=== PATIENT | male | born 1965 | race Caucasian/White ===

== ENCOUNTER 2021-04-25 20:46 | Outpatient (CLI) | payer MEDICAID | END 2021-04-25 20:47 | disposition critical access hospital (66) | LOC: EMS 20:46 | DX: R56.9 Unspecified convulsions (principal) | CPT/HCPCS: A0425; A0429; A0999 ==

== ENCOUNTER 2021-04-25 21:13 | Emergency (ER) | payer MEDICAID, OTHER ==
--- NOTE | 2021-04-25 21:12 | ED Physician Documentation ---
PD HPI SEIZURE - Stated complaint Stated Complaint: SZ - History obtained from History obtained from: Patient, EMS - History of Present Illness Timing - onset: How many minutes ago (approximately 30-40 minutes [employer]) Witnessed: Witnessed Number of seizures: Single, Lasted minutes Description of seizure activity: Generalized, Tonic clonic Injury during seizure: Other (left ear) Associated symptoms: None History of seizures: Prior EtOH wdrawal sz Contributing factors: EtOH withdrawal - Additional information Additional information: BIBA. Patient was at work when, approximately 30-45 minutes [employer], he had GTC seizure lasting approximately 1 minute. He fell from standing position (fell due to seizure). Post-ictal AMS/confusion lasted 10-15 minutes and he is at baseline mental status on ED arrival. He says he has had seizures before, states they told me combination of dehydration and alcohol withdrawal. He admits to recent regular and heavy drinking of alcohol, last drink was yesterday Review of Systems Constitutional: reports: Reviewed and negative Eyes: reports: Reviewed and negative Ears: reports: Ear pain (mild left ear pain (auricle, due to injury when he fell)) Cardiac: reports: Reviewed and negative Respiratory: reports: Reviewed and negative GI: reports: Reviewed and negative Musculoskeletal: reports: Reviewed and negative Neurologic: reports: Seizure, Altered mental status (resolved [employer]), Head injury. denies: Generalized weakness, Focal weakness, Numbness, Headache PD PAST MEDICAL HISTORY - Past Medical History Past Medical History: Yes Other Past Medical History: alcohol withdrawal seizure - Past Surgical History Past Surgical History: No - Present Medications Home Medications: Ambulatory Orders Medication Instructions Recorded Confirmed Hydroxyzine HCl 11/28/14 11/28/14 [place] [[place] Carbonate] 11/28/14 11/28/14 chlordiazePOXIDE [Librium] 25 mg PO Q6H #15 cap 04/26/21 - Allergies Allergies/Adverse Reactions: Allergies Allergy/AdvReac Type Severity Reaction Status Date / Time No Known Drug Allergies Allergy Verified 04/25/21 21:20 PD ED PE NORMAL - Vitals Vital signs reviewed: Yes - General General: Alert and oriented X 3, No acute distress, Well developed/nourished - HEENT HEENT: Moist mucous membranes - Neck Neck: Supple, no meningeal sign, No bony TTP - Cardiac Cardiac: No murmur - Respiratory Respiratory: No respiratory distress, Clear bilaterally PD ED PE EXPANDED - HEENT HEENT Visual: 1 - bruising, swelling - Cardiac Cardiac: Tachy, Regular Rhythm Results - Vitals Vitals: Oxygen O2 Source Room air - EKG (time done) No standard instances Rate: Rate (enter#) (119) Rhythm: Sinus tachycardia [place]: Normal Intervals: Normal [place], Prolonged QT (borderline) QRS: Normal Ischemia: Normal ST segments - Labs Labs: Laboratory Tests 04/25/21 04/25/21 04/25/21 21:40 21:40 21:45 WBC 7.4 RBC 4.53 L Hgb 14.9 Hct 42.8 MCV 94.5 H MCH 32.9 H MCHC 34.8 RDW 11.4 L Plt Count 165 MPV 10.0 Neut # (Auto) 6.0 Lymph # (Auto) 0.7 L [place] # (Auto) 0.5 Eos # (Auto) 0.0 Baso # (Auto) 0.1 Absolute Nucleated RBC 0.00 Nucleated RBC % 0.0 Sodium 130 L Potassium 4.0 Chloride 92 L Carbon Dioxide 19 L Anion Gap 19.0 H BUN 7 Creatinine 0.8 Estimated GFR (MDRD) 101 Glucose 371 H Calcium 9.3 Total Bilirubin 1.6 H AST 72 H ALT 60 Alkaline Phosphatase 71 Total Protein 8.8 H Albumin 3.9 Globulin 4.9 H Albumin/Globulin Ratio 0.8 L Lipase 37 Urine Opiates Screen Ur Oxycodone Screen Urine Methadone Screen Ur Propoxyphene Screen Ur Barbiturates Screen Ur Tricyclics Screen Ur Phencyclidine Scrn Ur Amphetamine Screen U Methamphetamines Scrn U Benzodiazepines Scrn Urine Cocaine Screen U Cannabinoids Screen Ethyl Alcohol < 5.0 Serum Ketones NEGATIVE 04/25/21 23:00 WBC RBC Hgb Hct MCV MCH MCHC RDW Plt Count MPV Neut # (Auto) Lymph # (Auto) [place] # (Auto) Eos # (Auto) Baso # (Auto) Absolute Nucleated RBC Nucleated RBC % Sodium Potassium Chloride Carbon Dioxide Anion Gap BUN Creatinine Estimated GFR (MDRD) Glucose Calcium Total Bilirubin AST ALT Alkaline Phosphatase Total Protein Albumin Globulin Albumin/Globulin Ratio Lipase Urine Opiates Screen NEGATIVE Ur Oxycodone Screen NEGATIVE Urine Methadone Screen NEGATIVE Ur Propoxyphene Screen NEGATIVE Ur Barbiturates Screen NEGATIVE Ur Tricyclics Screen NEGATIVE Ur Phencyclidine Scrn NEGATIVE Ur Amphetamine Screen NEGATIVE U Methamphetamines Scrn NEGATIVE U Benzodiazepines Scrn NEGATIVE Urine Cocaine Screen NEGATIVE U Cannabinoids Screen NEGATIVE Ethyl Alcohol Serum Ketones - Rads (name of study) CT head Radiology: Prelim report reviewed, See rad report PD MEDICAL DECISION MAKING - ED course Complexity details: reviewed results, re-evaluated patient, considered differential, d/w patient ED course: presents after GTC seizure, had been drinking alcohol on daily basis until last drink yesterday. He is in NAD during ED stay. He says he has had prior seizures which were attributed to dehydration combined with alcohol withdrawal. He says he has been prescribed librium in the past for this. He has never been prescribed anti-seizure medications otherwise. Tachycardia gradually resolved after IV fluids and IV lorazepam. Advised to follow up in outpatient setting for reevaluation, particularly for his high blood sugar which he says is a new finding for him. Departure - Departure Disposition: 01 Home, Self Care Clinical Impression: Seizure, Hyperglycemia Condition: Good Instructions: ED Seizure Alcohol Withdrawal, ED Hyperglycemia New Susp Diabetes Follow-Up: Andrei Mccall MD [Physician No Access] - Prescriptions: chlordiazePOXIDE [Librium] 25 mg PO Q6H #15 cap Comments: A prescription for librium has been electronically submitted to [facility] in [place]. TAPER FOLLOWS (LIBRIUM) TAKE 2 TABLETS BY MOUTH EVERY 6 HOURS ON DAY 1 TAKE 1 TABLET BY MOUTH EVERY 6 HOURS ON DAY 2 TAKE 1 TABLET BY MOUTH TWICE PER DAY ON DAY 3 TAKE 1 TABLET BY MOUTH AT NIGHT ON DAY 4 Discharge Date/Time: 04/26/21 02:18
[2021-04-25] MEDS ORDERED: LORazepam 2 MG/ML VIAL IVP STA (21:28)
[2021-04-25] MEDS ORDERED: SODIUM CHLORIDE 0.9% 1,000 ML IV STA ×2 (21:28→23:13)
[2021-04-25 21:48] LABS: BASOPHILS # (AUTO) 0.1 10^3/uL (0.0-0.1); BASOPHILS % (AUTO) 0.7 %; EOSINOPHILS % (AUTO) 0.5 %; HCT - HEMATOCRIT 42.8 % (42.0-52.0); HGB - HEMOGLOBIN 14.9 g/dL (14.0-18.0); LYMPHOCYTES # (AUTO) 0.7 10^3/uL (1.5-3.5); LYMPHOCYTES % (AUTO) 9.9 %; MEAN CORPUSCULAR HEMOGLOBIN 32.9 pg (27.0-31.0); MEAN CORPUSCULAR HGB CONC 34.8 g/dL (32.0-36.0); MEAN CORPUSCULAR VOLUME 94.5 fL (80.0-94.0); MONOCYTES # (AUTO) 0.5 10^3/uL (0.0-1.0); MONOCYTES % (AUTO) 7.3 %; NEUTROPHILS % (AUTO) 81.2 %; PLT - PLATELET COUNT 165 10^3/uL (130-450); RED BLOOD COUNT 4.53 10^6/uL (4.70-6.10); RED CELL DISTRIBUTION WIDTH 11.4 % (12.0-15.0); WHITE BLOOD COUNT 7.4 x10^3/uL (4.8-10.8)
[2021-04-25 22:02] LABS: ALBUMIN 3.9 g/dL (3.2-5.5); ALBUMIN/GLOBULIN RATIO 0.8 (1.0-2.2); ALKALINE PHOSPHATASE 71 IU/L (42-121); ALT ALANINE AMINOTRANSFERASE 60 IU/L (10-60); AST ASPARTATE AMINOTRANSFERASE 72 IU/L (10-42); BILIRUBIN,TOTAL 1.6 mg/dL (0.2-1.0); BUN - BLOOD UREA NITROGEN 7 mg/dL (6-20); CALCIUM 9.3 mg/dL (8.5-10.3); CARBON DIOXIDE - CO2 19 mmol/L (21-32); CHLORIDE 92 mmol/L (101-111); CREATININE 0.8 mg/dL (0.6-1.2); ETOH - ETHANOL < 5.0 mg/dL; GFR - MDRD 101 (>89); GLUCOSE 371 mg/dL (70-100); LIPASE 37 U/L (22-51); SODIUM 130 mmol/L (135-145); TOTAL PROTEIN 8.8 g/dL (6.7-8.2)
[2021-04-25 23:17] LABS: MUDS CUTOFF CONCENTRATIONS CUTOFF CONC BELOW:
[2021-04-25 23:33] LABS: AMPHETAMINE SCREEN,URINE NEGATIVE (NEGATIVE); BARBITURATE SCREEN,UR NEGATIVE (NEGATIVE); BENZODIAZEPINES SCREEN, URINE NEGATIVE (NEGATIVE); COCAINE SCREEN URINE NEGATIVE (NEGATIVE); METHADONE SCREEN, URINE NEGATIVE (NEGATIVE); METHAMPHETAMINES SCREEN, URINE NEGATIVE (NEGATIVE); OPIATE SCREEN, URINE NEGATIVE (NEGATIVE); OXYCODONE SCREEN, URINE NEGATIVE (NEGATIVE); PROPOXYPHENE SCREEN, URINE NEGATIVE (NEGATIVE); THC CANNABINOID SCREEN, URINE NEGATIVE (NEGATIVE); TRICYCLIC ANTIDEPRESSANT,URINE NEGATIVE (NEGATIVE)
[2021-04-26 01:34] VITALS: BP 149/93
--- NOTE | 2021-04-26 08:35 | CT Report ---
PROCEDURE: HEAD WO INDICATIONS: seizure, head injury TECHNIQUE: Noncontrast 4.5 mm thick angled axial sections acquired from the foramen magnum to the vertex. For r adiation dose reduction, the following was used: automated exposure control, adjustment of mA and/or kV according to patient size. COMPARISON: None. FINDINGS: Image quality: Excellent. CSF spaces: Basal cisterns are patent. No extra-axial fluid collections. Ventricles are normal in size and shape. Brain: No midline shift. No intracranial masses or hemorrhage. Sal-white matter interface is norm al. Skull and face: Left occipital subgaleal hematoma. Calvarium and visualized facial bones are intact, without suspicious lesions. Sinuses: Visualized sinuses and mastoids are clear. IMPRESSION: 1. Left occipital subgaleal hematoma. 2. No evidence of acute stroke, hemorrhage, or mass. 3. No evidence of significant intracranial sequelae of acute trauma. A preliminary report with the above findings was provided at the time of the study by [facility]. Reviewed by: Sujit Posadas MD on 04/26/2021 8:33 AM PDT Approved by: Sujit Posadas MD on 04/26/2021 8:33 AM PDT Station ID: [id number]
== END 2021-04-26 02:18 | disposition home or self-care (01) ==
LOC: EDUNIT# → ED 21:13
DX: G40.409 Other generalized epilepsy and epileptic syndromes, not intractable, without status epilepticus (principal); R73.9 Hyperglycemia, unspecified
CPT/HCPCS: 36415; 70450; 80053; 80306; 80320; 82009; 83690; 85025; 93005; 96361; 96374; 99284; J2060